=== PATIENT | male | born 1970 | race Caucasian/White ===

== ENCOUNTER 2024-07-15 05:58 | Day surgery (SDC) | payer OTHER, SELFPAY ==
[2024-06-27 13:30] VITALS: BMI 28.3
[2024-07-01 09:01] VITALS: BMI 28.0
[2024-07-15 06:32] VITALS: BP 122/84; PULSE 71; RESP 16; TEMP 36.6; O2SAT 100
--- NOTE | 2024-07-15 07:13 | PM.IMHP ---
H&P: HPI History of Present Illness Date/Time: 07/15/24 07:13 Chief Complaint: history of colon polyps Narrative: The patient has a history of colonic polyps, the last colonoscopy was 4 years ago. No family history of colon cancer Review of Systems Review of Systems: All systems reviewed & are unremarkable except as noted in HPI and below [facility] Social History Social History Smoking status: Never smoker Alcohol intake: unknown Substance use: never Substance use type: does not use Living arrangements: with family Spiritual care concerns: No Meds Home Medications and Allergies Home Medications ?Medication ?Instructions ?Recorded ?Confirmed ?Type No Home Medications 07/01/24 07/01/24 History Allergies Allergy/AdvReac Type Severity Reaction Status Date / Time No Known Allergies Allergy Verified 07/15/24 06:31 Vital Signs Vital Signs - 24 hr 07/15/24 06:32 Temperature 97.9 F Pulse Rate 71 Respiratory Rate 16 Blood Pressure 122/84 Pulse Oximetry 100 Oxygen Delivery Room Air Exam Const: General: cooperative and healthy appearing Resp: Effort & Inspection: normal respiratory effort and able to speak in complete sentences Auscultation: clear to auscultation bilaterally Cardio: Rate: regular rate Rhythm: regular rhythm GI: Inspection: normal to inspection GI Palp: No No hepatosplenomegaly present Auscultation: normal bowel sounds Rectal Exam: deferred Skin: General skin exam: normal color Psych: Appearance: grossly normal Mental Status: mental status grossly normal Assessment and Plan Assessment and plan (1) History of colonic polyps: Code(s): Z86.0100 - Personal history of colon polyps, unspecified Status: Acute Assessment and Plan: The patient is deemed a good candidate for the procedure. Consent signed. Will proceed.
--- NOTE | 2024-07-15 07:14 | WPDANESEPPF ---
Anes - Initial Pre Proc Eval Procedure: Operation Date: 07/15/24 07:30 Proposed Procedures s Esophagogastroduodenoscopy - Drew Reardon MD p Diagnostic Colonoscopy - Drew Reardon MD Date/Time: 07/15/24 07:14 Surgeon: Drew Reardon MD Pre Op Diagnosis: HX Colon Polyps, Dysphagia, Esophageal Obstruction Patient Data Age: 54 Gender: M Height: 1.75 m Weight: 87.6 kg Last Vital Signs Temp 36.6 C 07/15/24 06:32 Pulse 71 07/15/24 06:32 Resp 16 07/15/24 06:32 BP 122/84 07/15/24 06:32 Pulse Ox 100 07/15/24 06:32 O2 Del Method Room Air 07/15/24 06:32 Allergies Allergy/AdvReac Type Severity Reaction Status Date / Time No Known Allergies Allergy Verified 07/15/24 06:31 Home Medications ?Medication ?Instructions ?Recorded ?Confirmed ?Type No Home Medications 07/01/24 07/01/24 History Patient hx anesthesia problems: none Family hx anesthesia problems: none Results Review: All pre-operative results and documents have been reviewed as part of the pre-operative evaluation. [facility] Past Medical History Medical History (Updated 07/15/24 @ 07:16 by Daniel Bauman MD) Overweight Food impaction of esophagus Surgical History Surgical History (Updated 07/15/24 @ 07:16 by Daniel Bauman MD) H/O colonoscopy History of esophagogastroduodenoscopy (EGD) History of surgery on arm left - multiple - trauma as child Social History Social History Smoking status: Never smoker Alcohol intake: unknown Substance use: never Substance use type: does not use Living arrangements: with family Spiritual care concerns: No Anes - Eval Final PreProcedure Day of Procedure 07/15/24 07:14 Patient weight: overweight Heart: regular rate and rhythm Lungs: clear to auscultation Airway: Mallampati scale class II Neurological: alert and oriented Last oral intake: >/= 8 hours ASA classification: II Emergent: no Anesthetic plan: proceed Anesthesia type and monitoring: general GIVS and standard monitoring Results Review: All pre-operative results and documents have been reviewed as part of the pre-operative evaluation. Informed Consent: The patient's anesthetic plan and its attendant risks and benefits were discussed with the patient/family/POA. Questions were solicited and answers provided to the satisfaction of the patient/family/POA.
--- NOTE | 2024-07-15 07:18 | P.HP_ITS ---
H&P: HPI History of Present Illness Date/Time: 07/15/24 07:18 Chief Complaint: Dysphagia-screening colonoscopy Narrative: This is the patient's second colonoscopy. There are no GI symptoms and there is no family history of colorectal cancer. [facility] Past Medical History Medical History (Updated 07/15/24 @ 07:16 by Daniel Bauman MD) Overweight Food impaction of esophagus Surgical History Surgical History (Updated 07/15/24 @ 07:16 by Daniel Bauman MD) H/O colonoscopy History of esophagogastroduodenoscopy (EGD) History of surgery on arm left - multiple - trauma as child Social History Social History Smoking status: Never smoker Alcohol intake: unknown Substance use: never Substance use type: does not use Living arrangements: with family Spiritual care concerns: No Meds Home Medications and Allergies Home Medications ?Medication ?Instructions ?Recorded ?Confirmed ?Type No Home Medications 07/01/24 07/01/24 History Allergies Allergy/AdvReac Type Severity Reaction Status Date / Time No Known Allergies Allergy Verified 07/15/24 06:31 Vital Signs Vital Signs - 24 hr 07/15/24 06:32 Temperature 97.9 F Pulse Rate 71 Respiratory Rate 16 Blood Pressure 122/84 Pulse Oximetry 100 Oxygen Delivery Room Air
[2024-07-15 07:55] VITALS: BP 103/67; PULSE 65; RESP 16; O2SAT 98
[2024-07-15] MEDS: LACTATED RINGERS 1,000 ML 150 ML IV CONT (07:55)
[2024-07-15 08:05] VITALS: BP 98/76; PULSE 79; RESP 20; O2SAT 97
--- NOTE | 2024-07-15 08:07 | WPDANESPN ---
Anes - Prog Note Post-Op Date/Time: 07/15/24 08:07 Cardiovascular status: normal Respiratory status: normal Airway patency: baseline Mental status: baseline Post-Op hydration status: normal Vital Signs: Last Vital Signs Temp 36.6 C 07/15/24 06:32 Pulse 79 07/15/24 08:05 Resp 20 07/15/24 08:05 BP 98/76 L 07/15/24 08:05 Pulse Ox 97 07/15/24 08:05 O2 Del Method Room Air 07/15/24 08:05 Pain Score (VAS): 0/10 I/O: Intake & Output 07/14/24 07/15/24 07/15/24 23:59 07:59 15:59 Intake Total 500 Balance 500 Patient Feedback: Patient satisfied with anesthetic care.
[2024-07-15 08:15] VITALS: BP 106/77; PULSE 60; RESP 20; O2SAT 98
== END 2024-07-15 08:48 ==
PROVIDERS: PCP Family Medicine; Referring Provider Family Medicine; Visit Provider Internal Medicine Gastroenterology
PROC: 0DJ08ZZ Inspection of Upper Intestinal Tract, Via Natural or Artificial Opening Endoscopic (ICD-10-PCS; CPT 45378; principal; 2024-07-15 07:30)
PROC: 0DJD8ZZ Inspection of Lower Intestinal Tract, Via Natural or Artificial Opening Endoscopic (ICD-10-PCS; CPT 45378; 2024-07-15 07:30)
DX: Z12.11 Encounter for screening for malignant neoplasm of colon (principal); Z86.0100 Personal history of colon polyps, unspecified; K20.90 Esophagitis, unspecified without bleeding; K29.50 Unspecified chronic gastritis without bleeding; R13.10 Dysphagia, unspecified
CPT/HCPCS: 45378; 43239